=== PATIENT | female | born 1995 | race Caucasian/White ===

== ENCOUNTER 2017-09-12 08:21 | Emergency (ER) | payer OTHER ==
[~2017-09-12] VITALS: Ht 180.3 cm; Wt 59.0 kg
[~2017-09-12 08:21] MED LIST: ANUSOL-HC25 MG RC; KETO10TA2 PO; ORPH100T PO; SMZ-TMP DS 800-1 TAB PO; VALTREX1000 MG PO
== END 2017-09-12 11:28 | disposition home or self-care (01) ==
LOC: ER 08:21
DX: R05 Cough (principal)

== ENCOUNTER 2017-12-17 06:09 | Emergency (ER) | payer OTHER ==
[~2017-12-17] VITALS: Ht 149.9 cm; Wt 65.3 kg
== END 2017-12-17 08:49 | disposition home or self-care (01) ==
LOC: ER 06:09
DX: H10.89 Other conjunctivitis (principal)